=== PATIENT | female | born 1945 | race Hispanic/Latino ===

== ENCOUNTER 2017-12-29 14:10 | Emergency (ER) | payer MEDICARE, BC ==
[2017-12-29 14:28] VITALS: BMI 21.9
[2017-12-29 14:31] VITALS: TEMP 98.1
[2017-12-29] MEDS ORDERED: Sodium Chloride 0.9% 1,000 ML IV STA (15:00)
[2017-12-29 15:38] LABS: URINE BILIRUBIN NEGATIVE (NEGATIVE); URINE BLOOD TRACE-INTACT (NEGATIVE); URINE GLUCOSE (UA) NEGATIVE (NEGATIVE); URINE LEUKOCYTE ESTERASE TRACE Leu/uL (NEGATIVE); URINE PROTEIN NEGATIVE mg/dL (<30 mg/dL); URINE UROBILINOGEN 0.2 E.U./dL (<1 E.U./dL)
[2017-12-29 15:45] LABS: URINE APPEARANCE CLEAR (CLEAR); URINE COLOR YELLOW (YELLOW)
[2017-12-29 15:46] LABS: ALB/GLOB RATIO 1.5 (1.1-1.8); CALCIUM 9.8 mg/dL (8.4-10.5); GFR AFRICAN-AMERICAN > 60; GFR NON-AFRICAN AMERICAN > 60; LIPASE 48 U/L (23-300)
[2017-12-29] MEDS ORDERED: Iohexol 240 (50 ml) ONE (15:47)
[2017-12-29 15:50] LABS: BASO # 0.02 K/mm3 (0.0-2.0); BASO % 0.2 % (0.0-3.0); EOS # 0.1 (0.0-0.7); EOS % 0.6 % (1.5-5.0); GRAN # 7.14 (1.4-6.5); GRAN % 83.7 % (50.0-68.0); LYMPH % 11.4 % (22.0-35.0); MEAN CELL VOLUME 90.1 fl (80.0-105.0); MEAN CORPUSCULAR HEMOGLOBIN 31.5 pg (25.0-35.0); MEAN CORPUSCULAR HGB CONC 34.9 g/dl (31.0-37.0); MEAN PLATELET VOLUME 11.9 fl (7.0-11.0); MONO # 0.4 (0.1-0.6); MONO % 4.1 % (1.0-6.0); RBC 4.13 10^6/uL (3.5-6.1); RED CELL DISTRIBUTION WIDTH 14.2 % (11.5-14.5); WHITE BLOOD COUNT 8.5 10^3/ul (4.5-11.0)
[2017-12-29 15:51] LABS: ALT/SGPT 28 U/L (7-56); AST/SGOT 33 U/L (14-36); BLOOD UREA NITROGEN 10 mg/dL (7-21)
[2017-12-29 16:26] LABS: URINE BACTERIA FEW (NEG)
[2017-12-29] MEDS ORDERED: Iohexol 350 MG/100 ML VIAL ONE (17:52)
[2017-12-29 17:57] VITALS: RESP 18; O2SAT 98
--- NOTE | 2017-12-29 18:10 | ED PDOC ---
Arrival/HPI - General Chief Complaint: Abdominal Pain Time Seen by Provider: 12/29/17 14:45 Historian: Patient - History of Present Illness Narrative History of Present Illness (Text): 12/29/17 15:00 72 year old female, with past medical history of cholecystectomy, presents to the Emergency department complaining of right lower quadrant abdominal discomfort since 11 am this morning. Patient informs worsening pain bringing her to the Emergency department. Patient denies any fever, chills, nausea, vomiting, blood in stool, chest pain, shortness of breath, trauma or any other complaints. Patient informs good compliance with diet without any complaints. PMD: Dr. Hartmann Time/Duration: 4-6 hours Symptom Onset: Gradual Symptom Course: Unchanged Quality: Aching Activities at Onset: Light Context: Home Past Medical History - Provider Review Nursing Documentation Reviewed: Yes - Infectious Disease Hx of Infectious Diseases: None - Tetanus Immunization Tetanus Immunization: Unknown - Cardiac Hx Pacemaker: No - Neurological Hx Paralysis: No - HEENT Hx HEENT Disorder: No - Renal Hx Renal Disorder: No - Endocrine/Metabolic Hx Endocrine Disorders: No - Hematological/Oncological Hx Blood Transfusions: No Hx Blood Transfusion Reaction: No - Integumentary Hx Dermatological Disorder: No - Musculoskeletal/Rheumatological Hx Musculoskeletal Disorders: No - Gastrointestinal Hx Gastrointestinal Disorders: No - Genitourinary/Gynecological Hx Genitourinary Disorders: No - Psychiatric Hx Emotional Abuse: No Hx Physical Abuse: No Hx Substance Use: No - Surgical History Hx Cholecystectomy: Yes (2005) - Anesthesia Hx Anesthesia: Yes Hx Anesthesia Reactions: No Hx Malignant Hyperthermia: No - Suicidal Assessment Feels Threatened In Home Enviroment: No Family/Social History - Physician Review Nursing Documentation Reviewed: Yes Family/Social History: No Known Family HX Smoking Status: Never Smoked Hx Alcohol Use: No Hx Substance Use: No Hx Substance Use Treatment: No Allergies/Home Meds Allergies/Adverse Reactions: Allergies hydrochlorothiazide Allergy (Verified 01/07/16 09:54) ANAPHYLAXIS lisinopril Allergy (Verified 12/29/17 14:28) ANAPHYLAXIS Penicillins Allergy (Verified 01/07/16 09:54) ANAPHYLAXIS Home Medications: Home Meds Medication Instructions Recorded Confirmed Calcium/Vitamin D [Calcium + D 500 1 tab PO DAILY 12/06/13 12/29/17 mg-125 Iu] Famciclovir [Famvir] 500 mg PO DAILY 12/29/17 12/29/17 Valsartan [Diovan] 160 mg PO DAILY 12/29/17 12/29/17 Review of Systems - Physician Review All systems were reviewed & negative as marked: Yes - Review of Systems Constitutional: Normal. absent: Fevers Eyes: Normal ENT: Normal Respiratory: Normal. absent: SOB Cardiovascular: Normal. absent: Chest Pain Gastrointestinal: Abdominal Pain (Right lower quadrant). absent: Stool Changes , Diarrhea, Nausea, Vomiting Genitourinary Female: Normal Musculoskeletal: Normal Skin: Normal Neurological: Normal Endocrine: Normal Hemo/Lymphatic: Normal Psychiatric: Normal Physical Exam Vital Signs Reviewed: Yes Vital Signs Temp Pulse Resp BP Pulse Ox 12/29/17 16:11 81 18 145/79 98 12/29/17 14:31 98.1 F 99 H 17 160/77 H 99 12/29/17 14:29 98.1 F 99 H 17 160/77 H 98 Temperature: Afebrile Blood Pressure: Normal Pulse: Regular Respiratory Rate: Normal Appearance: Positive for: Well-Appearing, Non-Toxic, Comfortable Pain Distress: None Mental Status: Positive for: Alert and Oriented X 3 - Systems Exam Head: Present: Atraumatic, Normocephalic Pupils: Present: PERRL Extroacular Muscles: Present: EOMI Conjunctiva: Present: Normal Mouth: Present: Moist Mucous Membranes Neck: Present: Normal Range of Motion Respiratory/Chest: Present: Clear to Auscultation, Good Air Exchange. No: Respiratory Distress, Accessory Muscle Use Cardiovascular: Present: Regular Rate and Rhythm, Normal S1, S2. No: Murmurs Abdomen: Present: Tenderness (mild right lower quadrant tenderness), Normal Bowel Sounds. No: Distention, Peritoneal Signs Back: Present: Normal Inspection Upper Extremity: Present: Normal Inspection. No: Cyanosis, Edema Lower Extremity: Present: Normal Inspection. No: Edema Neurological: Present: GCS=15, CN II-XII Intact, Speech Normal Skin: Present: Warm, Dry, Normal Color. No: Rashes Psychiatric: Present: Alert, Oriented x 3, Normal Insight, Normal Concentration Medical Decision Making ED Course and Treatment: 12/29/17 15:00 Impression: 72 year old female presents to the Emergency department for right lower abdominal discomfort. Plan: --CT of Abdomen/Pelvis -- Labs -- Urine Culture -- Reassess and disposition Progress Notes: - Lab Interpretations Lab Results: 12/29/17 15:20 12/29/17 15:20 Lab Results 12/29/17 15:20: Sodium 139, Potassium 4.0, Chloride 104, Carbon Dioxide 25, Anion Gap 14, BUN 10, Creatinine 0.6 L, Est GFR ( Amer) > 60, Est GFR ( Non-Af Amer) > 60, Random Glucose 88, Calcium 9.8, Total Bilirubin 1.2, AST 33, ALT 28, Alkaline Phosphatase 65, Total Protein 6.7, Albumin 4.0, Globulin 2.7, Albumin/Globulin Ratio 1.5, Lipase 48 12/29/17 15:20: Urine Color Yellow, Urine Appearance Clear, Urine pH 8.0, Ur Specific [place] 1.015, Urine Protein Negative, Urine Glucose (UA) Negative, Urine Ketones 15 H, Urine Blood Trace-intact H, Urine Nitrate Negative, Urine Bilirubin Negative, Urine Urobilinogen 0.2, Ur Leukocyte Esterase Trace H, Urine RBC 1 - 3, Urine WBC 2 - 5, Ur Epithelial Cells 4 - 5, Urine Bacteria Few 12/29/17 15:20: WBC 8.5, RBC 4.13, Hgb 13.0, Hct 37.2, MCV 90.1, MCH 31.5, MCHC 34.9, RDW 14.2, Plt Count 169, MPV 11.9 H, Gran % 83.7 H, Lymph % (Auto) 11.4 L , [place] % (Auto) 4.1, Eos % (Auto) 0.6 L, Baso % (Auto) 0.2, Gran # 7.14 H, Lymph # (Auto) 1.0 L, [place] # (Auto) 0.4, Eos # (Auto) 0.1, Baso # (Auto) 0.02 - RAD Interpretation Radiology Orders: 12/29/17 15:00 ABD PELVIS PO & IV CONTRAST [CT] Stat - Medication Orders Current Medication Orders: Sodium Chloride (Sodium Chloride 0.9%) 1,000 mls @ 100 mls/hr IV .Q10H STA Stop: 12/30/17 00:59 Last Admin: 12/29/17 15:22 Dose: 100 mls/hr eMAR Start Stop Document 12/29/17 15:22 EWO (Rec: 12/29/17 15:24 EWO [id number]) Intravenous Solution Start Date 12/29/17 Start Time 15:24 - Scribe Statement The provider has reviewed the documentation as recorded by the Scribe Greyson Dobson. All medical record entries made by the Scribe were at my direction and personally dictated by me. I have reviewed the chart and agree that the record accurately reflects my personal performance of the history, physical exam, medical decision making, and the department course for this patient. I have also personally directed, reviewed, and agree with the discharge instructions and disposition. Disposition/Present on Arrival - Present on Arrival Any Indicators Present on Arrival: No History of DVT/PE: No History of Uncontrolled Diabetes: No Urinary Catheter: No History of Decub. Ulcer: No History Surgical Site Infection Following: None - Disposition Have Diagnosis and Disposition been Completed?: Yes Diagnosis: Abdominal pain Disposition Time: 19:00 Condition: STABLE Referrals: Angélica Hartmann MD [Primary Care Provider] - Follow up with primary Forms: [employer] (Djiboutian)
--- NOTE | 2017-12-29 18:50 | ED PDOC ---
Physical Exam - Physical Exam Narrative Physical Exam (Text): 12/29/17 18:48 Patient endorsed to me by Dr. Gutiérrez for pending CT of Abdomen/Pelvis and disposition. Patient is a 72 year old female who presents to the Emergency department with right lower quadrant abdominal discomfort since this morning. Patient currently denies any new complaints. Vital Signs Reviewed: Yes Vital Signs Temp Pulse Resp BP Pulse Ox 12/29/17 20:56 88 18 158/78 H 98 12/29/17 19:13 90 18 161/84 H 98 12/29/17 16:11 81 18 145/79 98 12/29/17 14:31 98.1 F 99 H 17 160/77 H 99 12/29/17 14:29 98.1 F 99 H 17 160/77 H 98 Temperature: Afebrile Blood Pressure: Hypertensive Pulse: Regular Respiratory Rate: Normal Appearance: Positive for: Well-Appearing, Non-Toxic, Comfortable Pain Distress: None Mental Status: Positive for: Alert and Oriented X 3 - Systems Exam Head: Present: Atraumatic, Normocephalic Pupils: Present: PERRL Extroacular Muscles: Present: EOMI Conjunctiva: Present: Normal Mouth: Present: Moist Mucous Membranes Neck: Present: Normal Range of Motion, Trachea Midline. No: MIDLINE TENDERNESS Respiratory/Chest: Present: Clear to Auscultation, Good Air Exchange. No: Respiratory Distress, Accessory Muscle Use Cardiovascular: Present: Regular Rate and Rhythm, Normal S1, S2. No: Murmurs Abdomen: Present: Tenderness (mild right lower quadrant tenderness), Normal Bowel Sounds, Other (no simpson's sign, no mcburney's point tenderness). No: Distention, Peritoneal Signs Back: Present: Normal Inspection. No: CVA Tenderness, Midline Tenderness Upper Extremity: Present: Normal Inspection, Normal ROM, NORMAL PULSES, Neurovascularly Intact. No: Cyanosis, Edema Lower Extremity: Present: Normal Inspection, NORMAL PULSES, Neurovascularly Intact. No: Edema Neurological: Present: GCS=15, CN II-XII Intact, Speech Normal Skin: Present: Warm, Dry, Normal Color. No: Rashes Psychiatric: Present: Alert, Oriented x 3, Normal Insight, Normal Concentration Medical Decision Making ED Course and Treatment: 12/29/17 18:51 Impression: 72 year old female presents to the Emergency department for RLQ abdominal discomfort. Progress Notes: 12/29/17 18:51 Patient endorsed to me by Dr. Gutiérrez for pending CT of Abdomen/Pelvis result and disposition. 12/29/17 21:06 pt is comfortable while resting in bed pt/family are made aware of her medical results pt is encouraged outpt f/u pt is encouraged no heavy weight bearing pt will be discharged home Re-evaluation Time: 21:00 Reassessment Condition: Improved - Lab Interpretations Microbiology Results: Microbiology Results 12/29/17 15:20 Urine Urine Culture - Final No Growth (<1,000 CFU/ML) Lab Results: 12/29/17 15:20 12/29/17 15:20 Lab Results 12/29/17 15:20: Sodium 139, Potassium 4.0, Chloride 104, Carbon Dioxide 25, Anion Gap 14, BUN 10, Creatinine 0.6 L, Est GFR ( Amer) > 60, Est GFR ( Non-Af Amer) > 60, Random Glucose 88, Calcium 9.8, Total Bilirubin 1.2, AST 33, ALT 28, Alkaline Phosphatase 65, Total Protein 6.7, Albumin 4.0, Globulin 2.7, Albumin/Globulin Ratio 1.5, Lipase 48 12/29/17 15:20: Urine Color Yellow, Urine Appearance Clear, Urine pH 8.0, Ur Specific [place] 1.015, Urine Protein Negative, Urine Glucose (UA) Negative, Urine Ketones 15 H, Urine Blood Trace-intact H, Urine Nitrate Negative, Urine Bilirubin Negative, Urine Urobilinogen 0.2, Ur Leukocyte Esterase Trace H, Urine RBC 1 - 3, Urine WBC 2 - 5, Ur Epithelial Cells 4 - 5, Urine Bacteria Few 12/29/17 15:20: WBC 8.5, RBC 4.13, Hgb 13.0, Hct 37.2, MCV 90.1, MCH 31.5, MCHC 34.9, RDW 14.2, Plt Count 169, MPV 11.9 H, Gran % 83.7 H, Lymph % (Auto) 11.4 L , [place] % (Auto) 4.1, Eos % (Auto) 0.6 L, Baso % (Auto) 0.2, Gran # 7.14 H, Lymph # (Auto) 1.0 L, [place] # (Auto) 0.4, Eos # (Auto) 0.1, Baso # (Auto) 0.02 I have reviewed the lab results: Yes - RAD Interpretation Narrative RAD Interpretations (Text): 12/29/17 20:43 CT of Abdomen/pelvis reviewed by radiologist, shows: FINDINGS: Lower thorax: Mild pericardial effusion. ABDOMEN: Liver: No acute abnormality as visualized. Gallbladder and bile ducts: Status post cholecystectomy with biliary ductal prominence. Pancreas: Pancreatic duct visualized. Spleen: 14 mm hypoattenuating lesion, incompletely characterized. Evidence of small calcified splenic aneurysm, measured at approximately 1 cm. Adrenals: No acute abnormality as visualized. Kidneys and ureters: Symmetric emhancement. No hydronephrosis. Stomach and bowel: No acute abnormality as visualized. No obstruction. No definitive focus of mucosal thickening. Appendix: No findings to suggest acute appendicitis. PELVIS: Bladder: No acute abnormality as visualized. Reproductive: No acute abnormality as visualized. ABDOMEN and PELVIS: Intraperitoneal space: No free air. No significant fluid collection. 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 Further evaluation recommended. Degenerative changes. Severe compression deformity of T11. Vasculature: NNo abdominal aortic aneurysm. Lymph nodes: No acute abnormality as visualized. IMPRESSION: No definitive acute CT finding to correspond to reported history. 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 Further evaluation recommended. Severe compression deformity of T11. Evidence of small calcified splenic aneurysm, measured at approximately 1 cm. 14 mm hypoattenuating lesion, incompletely characterized. Status post cholecystectomy with biliary ductal prominence. Mild pericardial effusion. Radiology Orders: 12/29/17 15:00 ABD PELVIS PO & IV CONTRAST [CT] Stat Seat Joiner: Radiologist - Medication Orders Current Medication Orders: Discontinued Medications Sodium Chloride (Sodium Chloride 0.9%) 1,000 mls @ 100 mls/hr IV .Q10H STA Stop: 12/30/17 00:59 Last Admin: 12/29/17 15:22 Dose: 100 mls/hr eMAR Start Stop Document 12/29/17 15:22 EWO (Rec: 12/29/17 15:24 LISSETHO [id number]) Intravenous Solution Start Date 12/29/17 Start Time 15:24 Oxycodone/Acetaminophen (Percocet 5/325 Mg Tab) 1 tab PO STAT STA Stop: 12/29/17 20:52 Last Admin: 12/29/17 21:01 Dose: 1 tab MAR Pain Assessment Document 12/29/17 21:01 RD (Rec: 12/29/17 21:01 RD [id number]) Pain Reassessment Is this a pain reassessment? No Sleep Is patient sleeping during reassessment? No Presence of Pain Presence of Pain Yes - Scribe Statement The provider has reviewed the documentation as recorded by the Scribe Greyson Dobson. All medical record entries made by the Scribe were at my direction and personally dictated by me. I have reviewed the chart and agree that the record accurately reflects my personal performance of the history, physical exam, medical decision making, and the department course for this patient. I have also personally directed, reviewed, and agree with the discharge instructions and disposition. Disposition/Present on Arrival - Present on Arrival Any Indicators Present on Arrival: No History of DVT/PE: No History of Uncontrolled Diabetes: No Urinary Catheter: No History of Decub. Ulcer: No History Surgical Site Infection Following: None - Disposition Have Diagnosis and Disposition been Completed?: Yes Diagnosis: Abdominal pain, Osteitis pubis, Right lower quadrant abdominal pain Disposition: HOME/ ROUTINE Disposition Time: 21:00 Patient Plan: Discharge Condition: STABLE Discharge Instructions (ExitCare): Acute Abdomen (Belly Pain), Adult (DC), Acute Pelvic Pain (DC) Print Language: BANGLADESHI Additional Instructions: Osteitis pubis is an inflammation of the pubic symphysis and surrounding muscle insertions. Make sure to see your doctor in 1-2 days DRINK PLENTY OF FLUIDS take your medications as prescribed RETURN TO ED IF worse pain, cant breath, persistent vomiting, high fever >101- 102 for hours, altered behavior, slurr speech, facial changes, focal weakness ( arm/leg or both), unable to urinate, heavy/persistent bleeding, passing out, chest pain, or other medical emergencies Prescriptions: oxyCODONE/Acetaminophen [Percocet 5/325 mg Tab] 1 tab PO BID PRN #10 tab PRN Reason: Pain, Moderate (4-7) Referrals: Angélica Hartmann MD [Primary Care Provider] - Follow up with primary Ambrocio Kenyon MD [Staff Provider] - Follow up with primary Forms: [employer] (Japanese)
--- NOTE | 2017-12-29 20:40 | CT ---
EXAM: CT Abdomen and Pelvis With Intravenous Contrast CLINICAL HISTORY: 72 years old, female; Pain; Abdominal pain; Tenderness; Right lower quadrant (rlq); Additional info: Rlq tenderness TECHNIQUE: Axial computed tomography images of the abdomen and pelvis with intravenous contrast. All CT scans at this facility use one or more dose reduction techniques, viz.: automated exposure control; ma/kV adjustment per patient size (including targeted exams where dose is matched to indication; i.e. head); or iterative reconstruction technique. Coronal and sagittal reformatted images were created and reviewed. CONTRAST: 100 mL of [id number] administered intravenously. COMPARISON: No relevant prior studies available. FINDINGS: Lower thorax: Mild pericardial effusion. ABDOMEN: Liver: No acute abnormality as visualized. Gallbladder and bile ducts: Status post cholecystectomy with biliary ductal prominence. Pancreas: Pancreatic duct visualized. Spleen: 14 mm hypoattenuating lesion, incompletely characterized. Evidence of small calcified splenic aneurysm, measured at approximately 1 cm. Adrenals: No acute abnormality as visualized. Kidneys and ureters: Symmetric emhancement. No hydronephrosis. Stomach and bowel: No acute abnormality as visualized. No obstruction. No definitive focus of mucosal thickening. Appendix: No findings to suggest acute appendicitis. PELVIS: Bladder: No acute abnormality as visualized. Reproductive: No acute abnormality as visualized. ABDOMEN and PELVIS: Intraperitoneal space: No free air. No significant fluid collection. 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 Further evaluation recommended. Degenerative changes. Severe compression deformity of T11. Vasculature: NNo abdominal aortic aneurysm. Lymph nodes: No acute abnormality as visualized. IMPRESSION: No definitive acute CT finding to correspond to reported history. 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 Further evaluation recommended. Severe compression deformity of T11. Evidence of small calcified splenic aneurysm, measured at approximately 1 cm. 14 mm hypoattenuating lesion, incompletely characterized. Status post cholecystectomy with biliary ductal prominence. Mild pericardial effusion.
[2017-12-29] MEDS ORDERED: Oxycodone/Acetaminophen 5/325 mg Tab PO STA (20:51)
[2017-12-29 20:56] VITALS: BP 158/78; PULSE 88
== END 2017-12-29 21:01 | disposition home or self-care (01) ==
LOC: ED 14:10
DX: M89.8X8 Other specified disorders of bone, other site (principal); R10.31 Right lower quadrant pain; Z90.49 Acquired absence of other specified parts of digestive tract
CPT/HCPCS: 74177; 80053; 81001; 83690; 85025; 87086; 99284; J7040; Q9966; Q9967

== ENCOUNTER 2018-09-08 07:45 | Emergency (ER) | payer MEDICARE, BC ==
[2018-09-08] MEDS ORDERED: Pantoprazole 40 MG in Sodium Chloride 0.9% 100 ML IV STA (07:58)
--- NOTE | 2018-09-08 08:02 | ED PDOC ---
Arrival/HPI - General Time Seen by Provider: 09/08/18 07:47 Historian: Patient - History of Present Illness Narrative History of Present Illness (Text): 09/08/18 07:57 A 72 year old female, whose past medical history includes cholecystectomy (13 years ago), presents to the emergency department with a complaint of 3 day duration generalized abdominal pain. The patient notes that she and her have eaten the same things, and he notes that he feels fine. She also reports that last night she developed right posterior knee, calf, and thigh pain. The patient is a non- smoker/ non- drinker. She denies travel or exposure, fevers, chills, headache, dizziness, chest pain, shortness of breath, dyspnea on exertion, cough, nausea, vomiting, diarrhea, back pain, neck pain, genitourinary symptoms, urinary/bowel changes, or any other complaint. Time/Duration: Other (3 Days) Symptom Onset: Sudden Symptom Course: Unchanged Activities at Onset: Rest, Light Context: Home Associated Symptoms (Text): 09/08/18 08:36 Several day history of generalized abdominal pain. No nausea vomiting or diarrhea. No radiation. No genitourinary symptoms. No fever or chills. No travel or exposure. Patient also reports that last night she developed right lower extremity pain in the posterior thigh and knee and calf. No chest pain or dyspnea. She does not appear to be in any distress. Past Medical History - Provider Review Nursing Documentation Reviewed: Yes - Infectious Disease Hx of Infectious Diseases: None - Tetanus Immunization Tetanus Immunization: Unknown - Cardiac Hx Pacemaker: No - Neurological Hx Paralysis: No - HEENT Hx HEENT Disorder: No - Renal Hx Renal Disorder: No - Endocrine/Metabolic Hx Endocrine Disorders: No - Hematological/Oncological Hx Blood Transfusions: No Hx Blood Transfusion Reaction: No - Integumentary Hx Dermatological Disorder: No - Musculoskeletal/Rheumatological Hx Musculoskeletal Disorders: No - Gastrointestinal Hx Gastrointestinal Disorders: No - Genitourinary/Gynecological Hx Genitourinary Disorders: No - Psychiatric Hx Emotional Abuse: No Hx Physical Abuse: No Hx Substance Use: No - Surgical History Hx Cholecystectomy: Yes (2005) - Anesthesia Hx Anesthesia: Yes Hx Anesthesia Reactions: No Hx Malignant Hyperthermia: No - Suicidal Assessment Feels Threatened In Home Enviroment: No Family/Social History - Physician Review Nursing Documentation Reviewed: Yes Family/Social History: No Known Family HX Smoking Status: Never Smoked Hx Alcohol Use: No Hx Substance Use: No Hx Substance Use Treatment: No Allergies/Home Meds Allergies/Adverse Reactions: Allergies hydrochlorothiazide Allergy (Verified 09/08/18 07:59) ANAPHYLAXIS lisinopril Allergy (Verified 09/08/18 07:59) ANAPHYLAXIS Penicillins Allergy (Verified 09/08/18 07:59) ANAPHYLAXIS Home Medications: Home Meds Medication Instructions Recorded Confirmed Valsartan [Diovan] 180 mg PO DAILY 12/29/17 09/08/18 Review of Systems - Physician Review All systems were reviewed & negative as marked: Yes - Review of Systems Constitutional: absent: Fatigue, Fevers Respiratory: absent: SOB, Cough Cardiovascular: absent: Chest Pain, Palpitations, HOPE, Syncope Gastrointestinal: Abdominal Pain. absent: Stool Changes, Diarrhea, Nausea, Vomiting, Anorexia Genitourinary Female: absent: Dysuria, Frequency, Hematuria, Urine Output Changes Musculoskeletal: Other (Posterior knee, calf, and thigh pain. Right.). absent: Back Pain, Neck Pain Neurological: absent: Headache, Dizziness Physical Exam Temperature: Afebrile Blood Pressure: Normal Pulse: Regular Respiratory Rate: Normal Appearance: Positive for: Well-Appearing, Non-Toxic, Comfortable Pain Distress: None Mental Status: Positive for: Alert and Oriented X 3 - Systems Exam Head: Present: Atraumatic, Normocephalic Pupils: Present: PERRL Extroacular Muscles: Present: EOMI Conjunctiva: Present: Normal Mouth: Present: Moist Mucous Membranes Pharnyx: No: ERYTHEMA, EXUDATE, TONSILS ENLARGED Neck: Present: Normal Range of Motion Respiratory/Chest: Present: Clear to Auscultation, Good Air Exchange. No: Respiratory Distress, Accessory Muscle Use Cardiovascular: Present: Regular Rate and Rhythm, Normal S1, S2. No: Murmurs Abdomen: Present: Tenderness (Mild generalized abdominal tenderness. ). No: Distention, Peritoneal Signs, Rebound, Guarding Back: Present: Normal Inspection. No: CVA Tenderness Upper Extremity: Present: Normal Inspection. No: Cyanosis, Edema Lower Extremity: Present: NORMAL PULSES, Tenderness (Tenderness to popliteal fossa, posterior right thigh, and calf.). No: Edema, Swelling Neurological: Present: GCS=15, CN II-XII Intact, Speech Normal, Motor Func Grossly Intact Skin: Present: Warm, Dry, Normal Color. No: Rashes Psychiatric: Present: Alert, Oriented x 3, Normal Insight, Normal Concentration Medical Decision Making ED Course and Treatment: 09/08/18 08:05 Impression: A 72 year old female presents to the emergency department with a complaint of generalized abdominal pain, and right knee, calf, and thigh pain. Plan: -- Abdomen/Pelvis CT -- Right Lower Extremity Ultrasound -- EKG -- Chest X-ray -- Labs -- Urinalysis -- Protonix, Toradol -- Reassess and disposition Prior Visits: Notes and results from previous visits were reviewed. Progress Notes: 09/08/18 08:38 EKG shows normal sinus rhythm rate approximately [address] or T-wave changes. 09/08/18 09:11 Abdominal pain and leg pain have improved post Toradol, though not resolved. Waiting for CT scan results. 09/08/18 10:03 Workup is unremarkable. Urine cultures been obtained. Patient denies urinary symptoms. Will wait for urine culture prior to be getting any antibiotic treatment. Her CT scan Doppler and x-ray are unremarkable. Mild hypokalemia treated in the emergency department. Patient will call Dr. Hartmann tomorrow morning for follow-up. We will try Naprosyn and Zofran. Follow-up in the ER as needed. - Lab Interpretations I have reviewed the lab results: Yes - RAD Interpretation Radiology Orders: CT scan of the abdomen and pelvis as read by the radiologist shows no significant acute findings. Venous Doppler is read by the radiologist shows no DVT. Chest one view shows no infiltrate effusion or cardiomegaly. Field Care Advocate: Radiologist - EKG Interpretation Interpreted by ED Physician: Yes Type: 12 lead EKG - Scribe Statement The provider has reviewed the documentation as recorded by the Scribe Ladonna Cadena Provider Scribe Attestation: All medical record entries made by the Scribe were at my direction and personally dictated by me. I have reviewed the chart and agree that the record accurately reflects my personal performance of the history, physical exam, medical decision making, and the department course for this patient. I have also personally directed, reviewed, and agree with the discharge instructions and disposition. Disposition/Present on Arrival - Present on Arrival Any Indicators Present on Arrival: No History of DVT/PE: No History of Uncontrolled Diabetes: No Urinary Catheter: No History of Decub. Ulcer: No History Surgical Site Infection Following: None - Disposition Have Diagnosis and Disposition been Completed?: Yes Diagnosis: Abdominal pain, Hypokalemia, Leg pain Disposition: HOME/ ROUTINE Disposition Time: 10:04 Patient Plan: Discharge Condition: GOOD Discharge Instructions (ExitCare): Hypokalemia (DC), Acute Abdomen (Belly Pain), Muscle and Bone Pain (DC) Additional Instructions: Call Dr. Hartmann tomorrow morning for follow-up. Follow-up in the ER as needing. Waiting for urine culture results. Prescriptions: Naproxen [Naprosyn] 500 mg PO BID #14 tab Ondansetron ODT [Zofran ODT] 4 mg PO Q6 #20 odt
[2018-09-08 08:06] VITALS: BMI 20.6
[2018-09-08 08:11] LABS: BASO # 0.02 K/mm3 (0.0-2.0); BASO % 0.3 % (0.0-3.0); EOS # 0.1 (0.0-0.7); EOS % 0.7 % (1.5-5.0); GRAN # 6.08 (1.4-6.5); HEMOGLOBIN 13.8 g/dL (12.0-16.0); LYMPH # 0.9 (1.2-3.4); LYMPH % 12.3 % (22.0-35.0); MEAN CELL VOLUME 89.4 fl (80.0-105.0); MEAN CORPUSCULAR HEMOGLOBIN 31.2 pg (25.0-35.0); MEAN CORPUSCULAR HGB CONC 34.9 g/dl (31.0-37.0); MEAN PLATELET VOLUME 11.3 fl (7.0-11.0); MONO # 0.3 (0.1-0.6); MONO % 3.7 % (1.0-6.0); RBC 4.42 10^6/uL (3.5-6.1); RED CELL DISTRIBUTION WIDTH 13.9 % (11.5-14.5); WHITE BLOOD COUNT 7.3 10^3/uL (4.5-11.0)
[2018-09-08 08:14] LABS: PH,URINE 7.5 (4.7-8.0); URINE BILIRUBIN NEGATIVE (NEGATIVE); URINE BLOOD TRACE-INTACT (NEGATIVE); URINE GLUCOSE (UA) NEGATIVE (NEGATIVE); URINE LEUKOCYTE ESTERASE TRACE Leu/uL (NEGATIVE); URINE PROTEIN NEGATIVE mg/dL (<30 mg/dL); URINE UROBILINOGEN 0.2 E.U./dL (<1 E.U./dL)
[2018-09-08 08:16] VITALS: RESP 18; TEMP 98.2
[2018-09-08 08:16] LABS: URINE APPEARANCE CLEAR (CLEAR); URINE COLOR LIGHT YELLOW (YELLOW)
[2018-09-08 08:18] LABS: ALB/GLOB RATIO 1.5 (1.1-1.8); ALBUMIN 4.1 g/dL (3.0-4.8); ALT/SGPT 25 U/L (7-56); AMYLASE 70 U/L (35-125); AST/SGOT 22 U/L (14-36); BLOOD UREA NITROGEN 9 mg/dL (7-21); CALCIUM 9.2 mg/dL (8.4-10.5); GFR NON-AFRICAN AMERICAN > 60; INR 1.04; LIPASE 47 U/L (23-300); PARTIAL THROMBOPLASTIN TIME 27.4 Seconds (25.1-36.5)
[2018-09-08 08:29] LABS: TROPONIN I < 0.01 ng/mL
[2018-09-08] MEDS ORDERED: Potassium Chloride 10 mEq ER Tab PO STA (09:46)
--- NOTE | 2018-09-08 09:51 | CT ---
Date of service: 09/08/2018 PROCEDURE: CT Abdomen and Pelvis . HISTORY: Pain COMPARISON: Comparison made with prior CT scan 12/29/2017.. TECHNIQUE: Contiguous axial images of the abdomen and pelvis performed without oral or intravenous contrast material. Additional 2D sagittal and coronal reformats generated. Radiation dose: Total exam DLP = 230.54 mGy-cm. This CT exam was performed using one or more of the following dose reduction techniques: Automated exposure control, adjustment of the mA and/or kV according to patient size, and/or use of iterative reconstruction technique. FINDINGS: LOWER THORAX: Heart size is within range of normal. Small pericardial effusion. Some minimal bibasilar atelectasis and minimal linear scarring changes. Lung bases otherwise clear. No effusion or pneumothorax. LIVER: Liver exhibits normal size measuring approximately 16 cm in CC dimension. No obvious hepatic mass collection calcification. GALLBLADDER AND BILE DUCTS: Cholecystectomy.. PANCREAS: Unremarkable. No mass. No ductal dilatation. SPLEEN: Redemonstrated is a small splenic artery aneurysm. Previously noted small elliptical shaped 14 mm low-attenuation lesion posterior margin of the splenic parenchyma is poorly seen due to the lack of circulating intravenous contrast material. ADRENALS: No adrenal lesions. KIDNEYS AND URETERS: Kidneys demonstrate symmetric size. No evidence of nephrolithiasis or hydronephrosis. BLADDER: Urinary bladder incompletely distended which may account for slight thick-walled appearance. Correlation with urinalysis.. REPRODUCTIVE: Unremarkable. APPENDIX: Appendix is not seen with any certainty on this study however no phlegm a kaya changes seen right lower quadrant of the abdomen BOWEL: Evaluation of the bowel is limited due to the lack of oral contrast material. Stomach is incompletely distended. Visualized loops small bowel exhibit normal contour and caliber. No evidence of acute mechanical small bowel obstruction. Moderate amount stool seen within the ascending colon and the rectosigmoid consistent with mild fecal retention/constipation.. PERITONEUM: Unremarkable. No fluid collection. No free air. LYMPH NODES: Unremarkable. No enlarged lymph nodes. VASCULATURE: Unremarkable. No aortic aneurysm. Minor aortic atherosclerotic calcification or mural plaque present. BONES: No redemonstrated is chronic appearing anterior wedge compression fracture of the T11 segment with mild retropulsion of the posterior cortex. Remaining vertebral bodies otherwise exhibit normal stature. Mild multilevel degenerative spondylosis... 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 OTHER FINDINGS: None. IMPRESSION: Small pericardial effusion. Small elliptical shaped lesion within the posterior margin of the splenic parenchyma seen on prior study is not appreciated on this exam due to the lack of circulating intravenous contrast material. Cholecystectomy. Stable small splenic artery aneurysm. Findings suggest mild constipation.
[2018-09-08 10:11] VITALS: PULSE 78
[2018-09-08 10:16] VITALS: BP 159/78; O2SAT 99
--- NOTE | 2018-09-08 10:23 | RAD ---
Date of service: 09/08/2018 HISTORY: ap COMPARISON: None available. FINDINGS: LUNGS: Questionable mild bronchiectatic changes both medial lower lung stephens PLEURA: No significant pleural effusion identified, no pneumothorax apparent. CARDIOVASCULAR: No discernible aortic atherosclerotic calcification present. Normal cardiac size. No pulmonary vascular congestion. OSSEOUS STRUCTURES: No significant abnormalities. VISUALIZED UPPER ABDOMEN: Normal. OTHER FINDINGS: None. IMPRESSION: Questionable mild bronchiectatic changes both medial lower lung stephens
--- NOTE | 2018-09-08 22:28 | CARD ---
APPROVED REPORT Date of service: 09/08/2018 EKG Measurement Heart [id number] <Conclusion> Normal sinus rhythm Normal ECG
--- NOTE | 2018-09-09 09:24 | US ---
PROCEDURE: Right lower extremity venous US HISTORY: Leg pain and swelling. Evaluate for DVT. PHYSICIAN(S): Dyllan Terry M.D. TECHNIQUE: Duplex sonography and color-flow Doppler with graded compression were used to evaluate the deep venous system of the right lower extremity. FINDINGS: The visualized deep venous system of the right lower extremity is sonographically normal and compressible. Normal waveforms and augmentation are seen. There is no sonographic evidence for deep venous thrombosis in the visualized segments of the right lower extremity. IMPRESSION: 1. No sonographic evidence for deep venous thrombosis in the visualized segments of the right lower extremity.
== END 2018-09-08 10:15 | disposition home or self-care (01) ==
LOC: ED 07:45
DX: R10.84 Generalized abdominal pain (principal); E87.6 Hypokalemia; M79.604 Pain in right leg
CPT/HCPCS: 71045; 74176; 80053; 81001; 82150; 82550; 83615; 83690; 84484; 85025; 85610; 85730; 87086; 93005; 93971; 96374; 96375; 99285; C9113; J1885

== ENCOUNTER 2019-01-03 08:56 | Outpatient (CLI) | payer MEDICARE | END 2019-01-03 08:57 | disposition home or self-care (01) | LOC: RAD 08:56 ==